=== PATIENT | female | born 1970 | race Caucasian/White ===

== ENCOUNTER 2016-08-13 17:10 | Emergency (ER) | payer SELFPAY ==
[~2016-08-13] VITALS: Ht 157.5 cm; Wt 137.0 kg
[2016-08-13 18:35] LABS: BASO % 0.1 % (0.0-1.0); EOS # 0.3 K/mm3 (0.0-0.50); EOS % 3.5 % (0.0-3.0); LARGE UNSTAINED CELL # 0.1 K/mm3 (0.0-0.4); LYMPH % 9.8 % (24.0-44.0); MEAN CORPUSCULAR HEMOGLOBIN 26.9 pg (27.0-33.0); MEAN CORPUSCULAR HGB CONC 32.3 g/dl (32.0-36.5); MEAN CORPUSCULAR VOLUME 83.3 fl (80.0-96.0); MONO # 0.5 K/mm3 (0.0-0.8); NEUTROPHILS # 7.2 K/mm3 (1.8-7.7); NEUTROPHILS % 80.5 % (36.0-66.0); PLATELET COUNT, AUTOMATED 298 k/mm3 (150-450); RED CELL DISTRIBUTION WIDTH 14.8 % (11.5-14.5)
[2016-08-13 19:04] LABS: ALBUMIN/GLOBULIN RATIO 0.97 (1.00-1.93); ALKALINE PHOSPHATASE 74 U/L (45-117); ALT/SGPT 63 U/L (12-78); ANION GAP 6 MEQ/L (8-16); AST/SGOT 30 U/L (15-37); BILIRUBIN,DIRECT 0.2 MG/DL (0.0-0.2); BILIRUBIN,TOTAL 0.4 MG/DL (0.2-1.0); BLOOD UREA NITROGEN 15 MG/DL (7-18); CALCIUM LEVEL 8.1 MG/DL (8.5-10.1); CARBON DIOXIDE LEVEL 28 MEQ/L (21-32); CHLORIDE LEVEL 107 MEQ/L (98-107); CREATININE FOR GFR 0.67 MG/DL (0.55-1.02); GLOMERULAR FILTRATION RATE > 60.0 (>58); GLUCOSE, FASTING 103 MG/DL (70-105); POTASSIUM SERUM 4.1 MEQ/L (3.5-5.1); SODIUM LEVEL 141 MEQ/L (136-145); TOTAL PROTEIN 6.1 GM/DL (6.4-8.2)
[2016-08-13 19:46] LABS: CONTROL LINE HCG INT CTR LINE PRESENT
[2016-08-13 21:31] VITALS: BP 189/80
[2016-08-13 21:56] LABS: METHADONE URINE NEGATIVE (NEGATIVE)
== END 2016-08-13 23:12 | disposition home or self-care (01) ==
LOC: M ED 19:07
DX: F60.9 Personality disorder, unspecified (principal); Z59.0 Homelessness
CPT/HCPCS: 80048; 80076; 80306; 84443; 84703; 85025; 99284; G0480

== ENCOUNTER 2016-10-22 11:32 | Emergency (ER) | payer SELFPAY ==
[~2016-10-22] VITALS: Ht 152.4 cm; Wt 93.0 kg
[2016-10-22 13:54] LABS: MEAN CORPUSCULAR HEMOGLOBIN 27.6 pg (27.0-33.0); MEAN CORPUSCULAR HGB CONC 34.7 g/dl (32.0-36.5); MEAN CORPUSCULAR VOLUME 79.5 fl (80.0-96.0); RED CELL DISTRIBUTION WIDTH 15.9 % (11.5-14.5); WHITE BLOOD COUNT 7.7 K/mm3 (4.0-10.0)
[2016-10-22 14:05] LABS: CONTROL LINE HCG INT CTR LINE PRESENT
[2016-10-22 14:25] LABS: ALBUMIN 3.5 GM/DL (3.2-5.2); ALBUMIN/GLOBULIN RATIO 0.97 (1.00-1.93); ALKALINE PHOSPHATASE 75 U/L (45-117); ALT/SGPT 26 U/L (12-78); ANION GAP 9 MEQ/L (8-16); AST/SGOT 12 U/L (15-37); BILIRUBIN,DIRECT 0.1 MG/DL (0.0-0.2); BILIRUBIN,TOTAL 0.3 MG/DL (0.2-1.0); BLOOD UREA NITROGEN 21 MG/DL (7-18); CALCIUM LEVEL 8.7 MG/DL (8.5-10.1); CARBON DIOXIDE LEVEL 29 MEQ/L (21-32); CHLORIDE LEVEL 104 MEQ/L (98-107); GLOMERULAR FILTRATION RATE > 60.0 (>58); GLUCOSE, FASTING 115 MG/DL (70-105); POTASSIUM SERUM 3.1 MEQ/L (3.5-5.1); SODIUM LEVEL 142 MEQ/L (136-145); TOTAL PROTEIN 7.1 GM/DL (6.4-8.2)
[2016-10-22] MEDS ORDERED: POTASSIUM CHLORIDE 10 MEQ SR TABLET PO ONE (14:45)
[2016-10-22 15:53] LABS: METHADONE URINE NEGATIVE (NEGATIVE)
--- NOTE | 2016-10-22 16:15 | REP ---
CT HEAD WITHOUT CONTRAST: HISTORY: Hirsutism. An area of decreased attenuation is present in the right basal ganglia and internal capsule. This represents an old infarction. Areas of decreased attenuation are present in the periventricular white matter. This represents small vessel ischemic disease. There is no intraparenchymal hemorrhage, mass or midline shift. The ventricular system and cortical sulci are dilated consistent with minimal volume loss. There is no extracerebral collection. A 15 mm enostosis is present arising from the inner table of the left frontal bone. The visualized sinuses are clear. IMPRESSION: 1. 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 2. Small vessel ischemic disease. 3. Minimal volume loss. Signed by Romero Barker MD 10/22/2016 04:28 P
--- NOTE | 2016-10-22 16:42 | REP ---
CT ABDOMEN AND PELVIS WITHOUT CONTRAST: CT abdomen and pelvis performed without oral or IV contrast. Sagittal and coronal reconstruction images are performed. Visualized lung bases are clear. Liver is grossly unremarkable. Multiple gallstones are seen in the gallbladder. The spleen, adrenals, pancreas, and kidneys are grossly unremarkable. There is no renal or ureteral calculus and no hydroureteronephrosis. There is no abdominal aortic aneurysm. There is no adenopathy. There is no free air or free fluid. There is no bowel wall thickening. Uterus is enlarged with lobulated contour compatible with fibroids. Cystic structure of the right ovary measures 2.9 cm in maximum diameter. Urinary bladder is not distended and not evaluated. There are degenerative changes of the spine. IMPRESSION: Gallstones in the gallbladder. No free air or free fluid. Enlarged fibroid uterus. Right ovarian cyst measures 2.9 cm in diameter. Signed by Boom Rice MD 10/23/2016 07:40 P
[2016-10-22 17:55] VITALS: BP 196/112
--- NOTE | 2016-10-24 08:45 | ED PDOC ---
Post-Departure Follow-Up certified letter sent regarding radiology report Zoay Clark MD Oct 24, 2016 08:45
== END 2016-10-22 17:58 | disposition home or self-care (01) ==
LOC: M ED 12:29
DX: I10 Essential (primary) hypertension (principal); L68.0 Hirsutism; K80.20 Calculus of gallbladder without cholecystitis without obstruction; N83.201 Unspecified ovarian cyst, right side; D25.9 Leiomyoma of uterus, unspecified
CPT/HCPCS: 36415; 70450; 74176; 80048; 80076; 80306; 84443; 84703; 85027; 99283; G0480

== ENCOUNTER → 2016-12-13 | Outpatient (CLI) | payer MEDICAID, OTHER ==
[~2016-12-13] MED LIST: ASPI1TAB PO; ATOR1TAB21 PO
[2016-12-13 10:33] LABS: BASO % 0.3 % (0.0-1.0); EOS # 0.2 K/mm3 (0.0-0.50); EOS % 1.8 % (0.0-3.0); LARGE UNSTAINED CELL # 0.1 K/mm3 (0.0-0.4); LARGE UNSTAINED CELL % 1.1 % (0.0-4.0); LYMPH # 1.7 K/mm3 (1.5-4.5); LYMPH % 18.4 % (24.0-44.0); MEAN CORPUSCULAR HEMOGLOBIN 27.6 pg (27.0-33.0); MEAN CORPUSCULAR HGB CONC 33.2 g/dl (32.0-36.5); MEAN CORPUSCULAR VOLUME 83.1 fl (80.0-96.0); MONO # 0.5 K/mm3 (0.0-0.8); MONO % 5.6 % (0.0-5.0); NEUTROPHILS # 6.2 K/mm3 (1.8-7.7); NEUTROPHILS % 72.8 % (36.0-66.0); PLATELET COUNT, AUTOMATED 251 k/mm3 (150-450); RED CELL DISTRIBUTION WIDTH 17.2 % (11.5-14.5); WHITE BLOOD COUNT 8.5 K/mm3 (4.0-10.0)
[2016-12-13 11:00] LABS: ALBUMIN/GLOBULIN RATIO 0.98 (1.00-1.93); BILIRUBIN,TOTAL 0.5 MG/DL (0.2-1.0); CALCIUM LEVEL 9.5 MG/DL (8.5-10.1); CREATININE FOR GFR 1.16 MG/DL (0.55-1.02); GLOMERULAR FILTRATION RATE 53.1 (>58); POTASSIUM SERUM 3.8 MEQ/L (3.5-5.1); TOTAL PROTEIN 8.1 GM/DL (6.4-8.2)
== END ==
LOC: M LAB 08:55 → MERGE 08:55
PROVIDERS: ATTEND Family Medicine Addiction Medicine
DX: L68.0 Hirsutism (principal); R03.0 Elevated blood-pressure reading, without diagnosis of hypertension

== ENCOUNTER → 2017-01-14 | Outpatient (CLI) | payer OTHER ==
--- NOTE | 2017-01-15 06:56 | REP ---
MRI BRAIN WITHOUT AND WITH CONTRAST: HISTORY: Hirsutism. CONTRAST: ProHance 11 mL. COMPARISON: CT 10/22/2016. An area of increased signal intensity on T2-weighted images is present in the right basal ganglia and internal capsule. This represents an old lacunar infarction. Several punctate areas of increased signal intensity on T2-weighted images are present in the periventricular and subcortical white matter. This represents small vessel ischemic disease. There is no intraparenchymal hemorrhage, acute infarct, mass or midline shift. The ventricular system and cortical sulci are dilated consistent with minimal volume loss. There is no extracerebral collection. The sella turcica is partially empty. The pituitary gland is normal in size and signal intensity. The pituitary gland measures 4.9 mm in height. There is homogeneous enhancement with contrast. The infundibulum is midline. The cavernous sinuses, optic chiasm and hypothalamus are normal in appearance. IMPRESSION: 1. 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 2. Small vessel ischemic disease. 3. Minimal volume loss. Signed by Romero Barker MD 01/15/2017 08:35 A
== END ==
LOC: M RAD 14:02
PROVIDERS: ATTEND Family Medicine Addiction Medicine
DX: R03.0 Elevated blood-pressure reading, without diagnosis of hypertension (principal)
CPT/HCPCS: 70553; A9576

== ENCOUNTER 2017-02-25 13:41 | Inpatient (IN) | payer OTHER ==
[~2017-02-25] VITALS: Ht 154.9 cm; Wt 89.7 kg
--- NOTE | 2017-02-25 14:48 | REP ---
CT Head without contrast HISTORY: Syncope COMPARISON: 10/22/2016 An area of decreased attenuation is present in the right basal ganglia and internal capsule. This represents an old lacunar infarction. Areas of decreased attenuation are present in the periventricular white matter. This represents small-vessel ischemic disease. There is no intraparenchymal hemorrhage, acute infarct, mass or midline shift. The ventricular system and cortical sulci are dilated consistent with minimal volume loss. There is no extra cerebral collection. There is no fracture. A 1.5 cm enostosis is present arising from the inner table of the left frontal bone. The visualized sinuses are clear. IMPRESSION: 1. 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 2. Small vessel ischemic disease. 3. Minimal volume loss. Signed by Romero Barker MD 02/25/2017 02:39 P
[2017-02-25 15:02] LABS: BASO % 0.2 % (0.0-1.0); EOS % 0.2 % (0.0-3.0); IMMATURE GRANULOCYTE % 0.5 % (0-0); LYMPH # 1.1 10^3/uL (1.5-4.5); LYMPH % 8.2 % (24.0-44.0); MEAN CORPUSCULAR HEMOGLOBIN 28.9 pg (27.0-33.0); MEAN CORPUSCULAR HGB CONC 34.9 g/dl (32.0-36.5); MEAN CORPUSCULAR VOLUME 82.8 fl (80.0-96.0); MONO # 0.7 10^3/uL (0.0-0.8); NEUTROPHILS # 11.1 10^3/uL (1.8-7.7); NEUTROPHILS % 85.9 % (36.0-66.0); PLATELET COUNT, AUTOMATED 175 10^3/uL (150-450); RED CELL DISTRIBUTION WIDTH 14.3 % (11.5-14.5)
[2017-02-25 15:22] LABS: PLT CLUMPS? POS FLAG; POS COUNT POS FLAG
[2017-02-25] MEDS ORDERED: NS 1,000 ML IV ONE (15:30)
[2017-02-25 15:33] LABS: CONTROL LINE HCG INT CTR LINE PRESENT
[2017-02-25 15:43] LABS: ANION GAP 20 MEQ/L (8-16); BLOOD UREA NITROGEN 23 MG/DL (7-18); CARBON DIOXIDE LEVEL 22 MEQ/L (21-32); CHLORIDE LEVEL 93 MEQ/L (98-107); CREATININE FOR GFR 1.61 MG/DL (0.55-1.02); FREE T4 1.39 NG/DL (0.76-1.46); GLOMERULAR FILTRATION RATE 36.4 (>58); GLUCOSE, FASTING 112 MG/DL (70-105); MAGNESIUM LEVEL 1.9 MG/DL (1.8-2.4); SODIUM LEVEL 135 MEQ/L (136-145)
[2017-02-25 16:05] LABS: POTASSIUM SERUM 2.8 MEQ/L (3.5-5.1)
[2017-02-25] MEDS ORDERED: POTASSIUM CHLORIDE 10 MEQ SR TABLET PO ONE (16:15)
--- NOTE | 2017-02-25 16:33 | REP ---
CHEST, SINGLE VIEW: There is no evidence of acute infiltrate. No pleural effusion is seen. The heart is normal in size. The mediastinal silhouette is unremarkable. The visualized osseous structures are intact. IMPRESSION: No acute pulmonary disease. Signed by Boom Rice MD 02/25/2017 08:03 P
[2017-02-25] MEDS ORDERED: ONDANSETRON 4MG/2ML VIAL (J2405) IV PRN (17:00)
--- NOTE | 2017-02-25 17:17 | HPEPDOC ---
[facility] Medical History & Physical Date of Admission Feb 25, 2017 History and Physical PCP: Dr. Wander Roy ATTENDING: Dr. Kim Fuller CHIEF COMPLAINT: Syncope HISTORY OF PRESENT ILLNESS: This is a 46-year-old female past medical history of hypertension, asthma, hyperlipidemia, prior old lacunar/basal ganglia infarct on imaging, hirsutism being followed by Dr. Saldivar who presents with syncope. Patient states that she's been homeless since June. She is currently staying at a motel. She went to see and Dr. Roy today for management of her hypertension when she stood up to go use the bathroom and had an episode of syncope. Patient denies any symptoms prior to syncope. No chest pain/shortness of breath/palpitations. No prior episodes. Patient denies any fecal or urinary incontinence. No tongue trauma. Of note, the patient did run out of food a week ago and has been only drinking water. She had 2 episodes of nausea and bilious/nonbloody vomiting 2 today. No diarrhea. Patient does have a history of hirsutism since November and is being worked up by Dr. Saldivar outpatient. PAST MEDICAL HISTORY: As per HPI PAST SURGICAL HISTORY: Tonsillectomy SOCIAL HISTORY: Denies tobacco, alcohol, illicit drug use. Homeless since June. FAMILY HISTORY: Father with [place] age 40s to 50s ALLERGIES: Please see below. REVIEW OF SYSTEMS: HEENT: Denies sore throat/headache CARDIOVASCULAR: Denies chest pain/palpitations RESPIRATORY: Denies shortness of breath/cough GASTROINTESTINAL: denies nausea/vomiting GENITOURINARY: Denies dysuria/urinary urgency. MUSCULOSKELETAL: Denies myalgias/arthralgias NEUROLOGICAL: Denies any focal weakness HOME MEDICATIONS: Please see below. PHYSICAL EXAMINATION: Vitals: (see below) General: No acute distress, laying comfortably in bed. Appears unkept. HEENT: Moist mucous membranes. Hirsutism. Neck: No JVD or lymphadenopathy Cardiac: RRR, 3-6 systolic murmur at the second right intercostal space Pulm: Clear to auscultation b/l. No wheezing, rhonchi Abd: NT/ND + BS. Obese. Ext: No edema or cyanosis Neuro: Strength 5/5 BUE and BLE. CN 2-12 intact. F to N intact Negative Babinki. Alert and oriented 3. LABORATORY DATA: See below. IMAGING: CT head on 02/25/17 IMPRESSION: 1. 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 2. Small vessel ischemic disease. 3. Minimal volume loss. MICROBIOLOGY: Please see below. ASSESSMENT/PLAN: 1. Syncope likely secondary to orthostatic hypotension. Patient has not been eating for the past week she ran out of food. She's also been nauseous and vomiting today. She was orthostatic in the ED. We'll trend orthostatic vitals while hydrating patient. Patient does have a murmur on exam and will have echocardiogram. We'll monitor in telemetry. Cardiac enzymes negative thus far and will trend. EKG with no acute ST changes. 2. Hypokalemia- likely secondary to vomiting and decreased by mouth intake. We will replace. 3. Acute kidney injury- patient's baseline creatinine is less than 1.1. Started on IV fluids. We will monitor labs. Renal ultrasound if no improvement. Patient is urinating well. 4. Leukocytosis- likely reactive. No source of infection. Afebrile. We'll continue to monitor. 5.Metabolic acidosis- likely secondary to decreased by mouth intake, as well as acute kidney injury. We'll hydrate patient and continue to monitor for improvement. 6. History of basal ganglia/lacunar infarct on imaging- we'll need to consider aspirin/statin prior to discharge 7. Hyperlipidemia- will start patient on statin. 8. H/o HTN 9. Hirsutism - being followed up by Dr. Saldivar, cont outpt f/u. DVT: Heparin SQ Case management consulted as pt is homeless. Vital Signs Vital Signs Date Time Temp Pulse Resp B/P (MAP) Pulse Ox O2 Delivery O2 Flow Rate FiO2 02/25/17 15:57 137/81 (99) 02/25/17 15:56 76 92 02/25/17 13:44 95.1 18 Room Air Laboratory Data Labs 24H Laboratory Tests 2 02/25/17 14:50: Immature Granulocyte % (Auto) 0.5H, White Blood Count 13.0H, Red Blood Count 5.98H, Hemoglobin 17.3H, Hematocrit 49.5H, Mean Corpuscular Volume 82.8, Mean Corpuscular Hemoglobin 28.9, Mean Corpuscular Hemoglobin Concent 34.9, Red Cell Distribution Width 14.3, Platelet Count 175, Neutrophils (%) (Auto) 85.9H, Lymphocytes (%) (Auto) 8.2L, Monocytes (%) (Auto) 5.0, Eosinophils (%) (Auto) 0.2, Basophils (%) (Auto) 0.2, Neutrophils # (Auto) 11.1H, Lymphocytes # (Auto) 1.1L, Monocytes # (Auto) 0.7, Eosinophils # (Auto) 0.0, Basophils # (Auto) 0.0, Immature Granulocyte # (Auto) 0.1H, Nucleated Red Blood Cells % (auto) 0.0, Anion Gap 20H, Glomerular Filtration Rate 36.4L, Blood Urea Nitrogen 23H, Creatinine 1.61H, Sodium Level 135L, Potassium Level 2.8*L, Chloride Level 93L, Carbon Dioxide Level 22, Calcium Level 10.0, Total Creatine Kinase 91, Magnesium Level 1.9, Creatine Kinase MB 4.3H, Creatine Kinase MB Relative Index 4.72H, Troponin I < 0.02, Thyroid Stimulating Hormone (TSH) 1.760, Free Thyroxine 1.39, Human Chorionic Gonadotropin, Qual NEGATIVE CBC/BMP Laboratory Tests 02/25/17 14:50 Red Blood Count 5.98 H, Mean Corpuscular Volume 82.8, Mean Corpuscular Hemoglobin 28.9, Mean Corpuscular Hemoglobin Concent 34.9, Red Cell Distribution Width 14.3, Neutrophils (%) (Auto) 85.9 H, Lymphocytes (%) (Auto) 8.2 L, Monocytes (%) (Auto) 5.0, Eosinophils (%) (Auto) 0.2, Basophils (%) (Auto ) 0.2, Neutrophils # (Auto) 11.1 H, Lymphocytes # (Auto) 1.1 L, Monocytes # ( Auto) 0.7, Eosinophils # (Auto) 0.0, Basophils # (Auto) 0.0, Calcium Level 10.0 , Total Creatine Kinase 91 Home Medications No Active Prescriptions or Reported Meds Allergies Coded Allergies: No Known Allergies (Unverified , 08/13/16) HALLEY CRUZ MD Feb 25, 2017 17:17
[2017-02-25 19:00] VITALS: BP 175/80
[2017-02-25] MEDS: PANTOPRAZOLE 40MG INJ (PROTONIX) (C9113) IV SCH (19:11)
[2017-02-25] MEDS: NS 1,000 ML IV SCH (19:11)
[2017-02-25 21:41] LABS: CALCIUM LEVEL 8.6 MG/DL (8.5-10.1); CREATININE FOR GFR 1.44 MG/DL (0.55-1.02); GLOMERULAR FILTRATION RATE 41.4 (>58); MAGNESIUM LEVEL 1.6 MG/DL (1.8-2.4); POTASSIUM SERUM 3.2 MEQ/L (3.5-5.1)
[2017-02-25 22:00] VITALS: BP 133/72
[2017-02-25] MEDS: HEPARIN SOD (PORCINE) 5000 UNITS/ML VIAL SC SCH (22:33)
[2017-02-26] VITALS (8 sets, daily range): BP systolic 99–160; BP diastolic 58–88
[2017-02-26] MEDS: NS 1,000 ML IV SCH (04:57)
[2017-02-26] MEDS: HEPARIN SOD (PORCINE) 5000 UNITS/ML VIAL SC SCH ×3 (05:08→20:38)
--- NOTE | 2017-02-26 08:20 | ECGEPIP ---
Stationary ECG Study [facility] - ED Test Date: 2017-02-25 Pat Name: FINA TRINIDAD Department: Room: - Gender: F Furniture Builder: JT : 1970 Requested By: TANIKA Zarate Order Number: [id number] Reading MD: Zoya Clark Measurements Intervals [place] Rate: 82 P: 69 MI: 162 QRS: 10 QRSD: 89 T: 25 QT: 362 QTc: 425 Interpretive Statements SINUS RHYTHM MODERATE VOLTAGE CRITERIA FOR LVH, CONSIDER NORMAL VARIANT DELAYED R PROGRESSION NSTTW ABNORMALITY NO PRIOR FOR COMPARISON Electronically Signed On 02-26-2017 8:20:27 EDT by Zoya Clark
[2017-02-26] MEDS: ATORVASTATIN 20 MG TAB PO SCH (08:57)
[2017-02-26] MEDS: KCL 20MEQ in NS 1000ML 1,000 ML IV SCH ×2 (11:36→20:38)
[2017-02-26 11:46] LABS: MEAN CORPUSCULAR HEMOGLOBIN 28.2 pg (27.0-33.0); MEAN CORPUSCULAR HGB CONC 33.9 g/dl (32.0-36.5); MEAN CORPUSCULAR VOLUME 83.2 fl (80.0-96.0); RED CELL DISTRIBUTION WIDTH 14.4 % (11.5-14.5); WHITE BLOOD COUNT 6.7 10^3/uL (4.0-10.0)
[2017-02-26 12:45] LABS: CALCIUM LEVEL 8.4 MG/DL (8.5-10.1); CREATININE FOR GFR 1.21 MG/DL (0.55-1.02); GLOMERULAR FILTRATION RATE 50.6 (>58); MAGNESIUM LEVEL 1.6 MG/DL (1.8-2.4); POTASSIUM SERUM 3.5 MEQ/L (3.5-5.1); THYROXINE (T4) 7.2 UG/DL (4.5-12.0)
[2017-02-26] MEDS: PANTOPRAZOLE 40MG INJ (PROTONIX) (C9113) IV SCH (17:48)
[2017-02-26] MEDS ORDERED: POTASSIUM CHLORIDE 10 MEQ SR TABLET PO ONE (18:30)
[2017-02-26] MEDS ORDERED: MAG SULF 1GM/100ML (MAG RUN) 1 GM in APPROPRIATE DILUENT 1 EA IV ONE (19:00)
--- NOTE | 2017-02-26 19:00 | IPN ---
DATE: 02/26/2017 Patient seen and examined. No acute events overnight. Reported improved lightheadedness, no further episodes of syncope. Hydration much improved. Continues to be orthostatic, but much improved. VITAL SIGNS: Temperature 98, pulse 82, respiration 18, Blood pressure 126/67, pulse ox 97% on room air. LABORATORY: WBC 6.7, H H 13.4/39.5. Platelets 129. Chemistry: Sodium 138, potassium 3.5, chloride 105, bicarbonate 26, BUN 21, creatinine 1.2, magnesium 1.6. PHYSICAL EXAM: GENERAL: Patient alert and oriented times three in no acute distress. HEENT: Normocephalic, atraumatic. PULMONARY: Bilaterally clear to auscultation. CARDIAC: Regular rate and rhythm. Normal S1, S2. ABDOMEN: Soft, non-tender, positive bowel sounds. EXTREMITIES: No clubbing, cyanosis or edema. ASSESSMENT AND PLAN: This is a 46-year-old homeless patient with underlying medical history of hypertension, asthma, dyslipidemia, old lacunar and basal ganglia infarct on imaging presented with syncope secondary to orthostatic hypotension. Patient stated has not been eating, has ran out of food for the past week or so and reported nausea and vomiting today. Was orthostatic in the emergency room, given IV fluids, with much improvement. Cardiac enzyme was negative. Follow up orthostatic physical therapy. Patient and Family Services (PFS) consulted. Hypokalemia hypomagnesemia secondary to decreased oral intake. Continue supplementation given. Continue to follow. Acute kidney injury. Baseline creatinine 1.1. Given IV fluids, currently improved. Leukocytosis, likely reactive. We will continue to monitor. Metabolic acidosis secondary to poor decreased oral intake and acute kidney injury. We will continue to monitor. History of basal ganglia and lacunar infarct. Will consider aspirin statin prior to discharge. Dyslipidemia. Will restart statin. History of hypertension. Patient currently orthostatic hypotension. We will hold all blood pressure medication. History of Hirsutism . Patient is being followed by Dr. Saldivar as outpatient. Deep vein thrombosis prophylaxis. Heparin subcu. DISPOSITION PLANNING: Social work, physical therapy, resolution of orthostasis and follow up pending correction of electrolyte abnormalities. [facility]
--- NOTE | 2017-02-26 23:19 | ECHO ---
DATE OF PROCEDURE: 02/26/2017 REFERRING PHYSICIAN: Reyes Romeo MD INDICATION: Syncope. HEIGHT: 155 cm WEIGHT: 106.1 kg 2D MEASUREMENTS: Left atrium: 3.6 cm Aortic root: 2.7 cm Ventricular septum: 1.06 cm Posterior wall: 1.08 cm Left ventricle diastole: 4.0 cm LVOT: 2.0 cm Inferior vena cava: 1.6 cm DOPPLER MEASUREMENTS: Aortic valve velocity: 167 cm/s LVOT velocity: 117 cm/s LVOT VTI: 27.0 cm Mitral E velocity: 96.7 cm/s Mitral A velocity: 74.5 cm/s Mitral deceleration time: 197 ms Very mild tricuspid regurgitation. Estimated right ventricle systolic pressure 29 mmHg assuming a right atrial pressure of 5 mmHg. MITRAL ANNULAR TISSUE DOPPLER: E prime septal: 7.8 cm/s E prime lateral: 13.3 cm/s DESCRIPTION: Rhythm was sinus. Image quality was fair. No pericardial effusion. This is a 2D, M-mode, color flow Doppler and pulse wave Doppler examination that included mitral annular tissue Doppler. CONCLUSIONS: 1. Normal echocardiogram Doppler. 2. Normal left ventricle internal dimensions and wall thickness. Normal regional left ventricle (LV) wall motion and wall thickening. Normal LV systolic and diastolic function. Left ventricular ejection fraction (LVEF) 65% by visual esitmate.
[2017-02-27] VITALS (8 sets, daily range): BP systolic 119–165; BP diastolic 62–89
[2017-02-27] MEDS: KCL 20MEQ in NS 1000ML 1,000 ML IV SCH (04:27)
[2017-02-27] MEDS: HEPARIN SOD (PORCINE) 5000 UNITS/ML VIAL SC SCH ×3 (05:42→21:24)
[2017-02-27 06:26] LABS: METHADONE URINE NEGATIVE (NEGATIVE)
[2017-02-27 07:17] LABS: MEAN CORPUSCULAR HEMOGLOBIN 28.7 pg (27.0-33.0); MEAN CORPUSCULAR HGB CONC 33.4 g/dl (32.0-36.5); MEAN CORPUSCULAR VOLUME 85.8 fl (80.0-96.0); WHITE BLOOD COUNT 4.9 10^3/uL (4.0-10.0)
[2017-02-27 07:38] LABS: ANION GAP 4 MEQ/L (8-16); BLOOD UREA NITROGEN 18 MG/DL (7-18); CALCIUM LEVEL 7.8 MG/DL (8.5-10.1); CARBON DIOXIDE LEVEL 26 MEQ/L (21-32); CHLORIDE LEVEL 113 MEQ/L (98-107); CREATININE FOR GFR 1.03 MG/DL (0.55-1.02); GLOMERULAR FILTRATION RATE > 60.0 (>58); GLUCOSE, FASTING 81 MG/DL (70-105); MAGNESIUM LEVEL 1.9 MG/DL (1.8-2.4); POTASSIUM SERUM 3.8 MEQ/L (3.5-5.1); SODIUM LEVEL 143 MEQ/L (136-145)
[2017-02-27] MEDS: ATORVASTATIN 20 MG TAB PO SCH (08:43)
[2017-02-27] MEDS ORDERED: INFLUENZA QUADRIVALENT PF VACCINE 0.5ML SYRINGE (90686) IM ONE (09:00)
[2017-02-27] MEDS ORDERED: ATOR1TAB21 PO (11:40)
[2017-02-27] MEDS ORDERED: ASPI1TAB PO (11:40)
[2017-02-27] MEDS: PANTOPRAZOLE 40MG INJ (PROTONIX) (C9113) IV SCH (17:44)
--- NOTE | 2017-02-27 20:56 | DSES ---
DATE OF ADMISSION: 02/25/2017 DATE OF DISCHARGE: 02/27/2017 PRIMARY CARE PROVIDER: Dr. Wander Roy FINAL DIAGNOSES: 1. Syncope secondary to orthostatic hypotension, secondary to poor oral intake. 2. Homeless. 3. Hypokalemia. 4. Hypomagnesemia. 5. Acute kidney injury. 6. Leukocytosis. 7. Metabolic acidosis. 8. History of basal ganglion lacunar infarct. 9. Dyslipidemia. 10. Hypertension. 11. Hirsutism. HISTORY OF PRESENT ILLNESS: This is a 46-year-old female patient with underlying medical history of hypertension, asthma, dyslipidemia, old lacunar and basal ganglion infarct on imaging, hirsutism, being followed by Dr. Saldivar, presented with syncope. Patient states that she has been homeless since June, and she is currently staying at a motel. She wanted to see Wander Roy for management of her hypertension. She stood up to the use the bathroom and had an episode of syncope. She does any symptoms prior to the syncope. No chest pain, shortness of breath, palpitations. No prior episodes. Patient denies any fecal or urinary incontinence. No tongue trauma. No history of seizure. Furthermore, patient reported that she has been out of food for a week, only drinking water. Had two episodes of nausea and bilious, nonbloody vomiting for 2 days. No diarrhea. Patient has had history of hirsutism since November. Has been followed by Dr. Saldivar as outpatient. HOSPITAL COURSE: Patient was admitted to the hospital and found to have acute kidney injury with severe dehydration and hypokalemia, hypomagnesemia, as well as orthostatic hypotension. Intravenous (IV) fluids were given. Electrolytes were supplemented. CT scan and chest x-ray were appreciated. Physical therapy was done. Patient's condition progressively improved. Patient and family services (PFS) was consulted to make sure patient had a safe situation upon discharge. Patient was referred to department of director of social media marketing (DSS). Social work consult appreciated. Patient currently feels comfortable, back to baseline, asymptomatic. Negative telemetry. Ready for discharge. Negative PVCs with corrected electrolyte abnormalities. Ready for discharge for further care as outpatient. VITAL SIGNS: Temperature 98, pulse 67, respirations 18, blood pressure 119/62, pulse x 97% on room air. GENERAL: Patient alert and oriented times three in no acute distress. HEENT: Normocephalic, atraumatic. PULMONARY: Bilaterally clear to auscultation. CARDIAC: Regular rate and rhythm. Normal S1, S2. ABDOMEN: Soft and nontender. Positive bowel sounds. EXTREMITIES: No clubbing, cyanosis, or edema. LABORATORY DATA: WBC 4.9, hemoglobin and hematocrit 12.7/38, platelets 132. Chemistry: Sodium 143, potassium 3.8, chloride 113, bicarbonate 26, BUN 18, creatinine 1.03, magnesium 1.9. DISCHARGE MEDICATIONS: - aspirin 81 mg by mouth daily - Lipitor 40 mg by mouth daily DISCHARGE INSTRUCTIONS: Patient is instructed to followup with primary care provider in 7 days. Return to the hospital if symptoms worsen. Patient is to see social work prior to discharge to make sure patient has a safe plan upon discharge.
[2017-02-28 02:00] VITALS: BP 145/67
[2017-02-28] MEDS: HEPARIN SOD (PORCINE) 5000 UNITS/ML VIAL SC SCH (05:10)
[2017-02-28 06:10] VITALS: BP_SYST 153; BP_SYST 161; BP_SYST 169; BP_DIAS 71; BP_DIAS 89; BP_DIAS 92
[2017-02-28 06:11] VITALS: BP 153/71
[2017-02-28 07:41] LABS: MEAN CORPUSCULAR HEMOGLOBIN 29.1 pg (27.0-33.0); MEAN CORPUSCULAR HGB CONC 33.5 g/dl (32.0-36.5); MEAN CORPUSCULAR VOLUME 86.7 fl (80.0-96.0); PLATELET COUNT, AUTOMATED 150 10^3/uL (150-450); RED CELL DISTRIBUTION WIDTH 15.1 % (11.5-14.5); WHITE BLOOD COUNT 5.4 10^3/uL (4.0-10.0)
[2017-02-28 07:58] LABS: ANION GAP 4 MEQ/L (8-16); BLOOD UREA NITROGEN 17 MG/DL (7-18); CALCIUM LEVEL 8.3 MG/DL (8.5-10.1); CARBON DIOXIDE LEVEL 27 MEQ/L (21-32); CHLORIDE LEVEL 111 MEQ/L (98-107); CREATININE FOR GFR 0.92 MG/DL (0.55-1.02); GLOMERULAR FILTRATION RATE > 60.0 (>58); GLUCOSE, FASTING 85 MG/DL (70-105); MAGNESIUM LEVEL 1.7 MG/DL (1.8-2.4); SODIUM LEVEL 142 MEQ/L (136-145)
[2017-02-28] MEDS ORDERED: MAG SULF 1GM/100ML (MAG RUN) 1 GM in APPROPRIATE DILUENT 1 EA IV ONE (09:00)
[2017-02-28] MEDS: ATORVASTATIN 20 MG TAB PO SCH (09:44)
[2017-02-28 10:00] VITALS: BP 136/86
--- NOTE | 2017-02-28 17:56 | DSES ---
DATE OF ADMISSION: 02/25/2017 DATE OF DISCHARGE: 02/28/2017 PRIMARY CARE PROVIDER: Dr. Wander Roy. FINAL DIAGNOSES: 1. Syncope secondary to orthostatic hypotension secondary to poor oral intake and homeless. 2. Hypokalemia. 3. Hypomagnesemia. 4. Acute kidney injury. 5. Leukocytosis. 6. Metabolic acidosis. 7. History of basal ganglia lacunar infarct. 8. Dyslipidemia. 9. Hypertension. 10. Hirsutism. Patient originally intended for discharge on 02/27/2017. Discharge delayed, given social situation and arrangements. Given patient is homeless, need social work to arrange for proper disposition. Please refer to discharge summary dictated on 02/27/2017 for further information. Patient currently discharged 02/28/2017. ESTIMATED TIME SPENT: 35 minutes.
== END 2017-02-28 11:11 | disposition home or self-care (01) | DRG 204 ==
LOC: M ED 13:41 → EDBD 13:41 → M ED INP 16:53 → M MSPAV 19:00
PROVIDERS: ADMIT Internal Medicine; ATTEND Hospitalist
DX: I95.1 Orthostatic hypotension (principal); N17.9 Acute kidney failure, unspecified; E87.2 Acidosis; E83.42 Hypomagnesemia; I10 Essential (primary) hypertension; J45.909 Unspecified asthma, uncomplicated; E78.5 Hyperlipidemia, unspecified; L68.0 Hirsutism; E87.6 Hypokalemia; Z59.0 Homelessness

== ENCOUNTER → 2017-03-26 | Outpatient (CLI) | payer MEDICAID, OTHER ==
[2017-03-26 13:16] LABS: CORTISOL AM 8.2 UG/DL (4.3-22.4); LUTEINIZING HORMONE 8.9 mIU/mL
[2017-03-26 13:17] LABS: ESTRADIOL 129.1 PG/ML; FOLLICLE STIMULATING HORMONE 4.8 mIU/mL
== END ==
LOC: M LAB 11:37
PROVIDERS: ATTEND Nurse Practitioner Family
DX: E28.2 Polycystic ovarian syndrome (principal)

== ENCOUNTER → 2017-04-30 | Outpatient (REF) | payer OTHER ==
[2017-04-30 13:50] LABS: ANION GAP 7 MEQ/L (8-16); BLOOD UREA NITROGEN 23 MG/DL (7-18); CALCIUM LEVEL 8.1 MG/DL (8.5-10.1); CARBON DIOXIDE LEVEL 30 MEQ/L (21-32); CHLORIDE LEVEL 101 MEQ/L (98-107); CREATININE FOR GFR 0.99 MG/DL (0.55-1.02); GLOMERULAR FILTRATION RATE > 60.0 (>58); GLUCOSE, FASTING 83 MG/DL (70-105); POTASSIUM SERUM 4.6 MEQ/L (3.5-5.1); SODIUM LEVEL 138 MEQ/L (136-145)
== END ==
LOC: M LABDRAW1 13:22
PROVIDERS: ATTEND Nurse Practitioner Family
DX: E28.2 Polycystic ovarian syndrome (principal)

== ENCOUNTER → 2017-07-15 | Outpatient (CLI) | payer OTHER, MEDICAID | LOC: M RAD 15:15 | DX: Z12.31 Encounter for screening mammogram for malignant neoplasm of breast (principal) ==

== ENCOUNTER → 2018-09-22 | Outpatient (REF) | payer OTHER ==
[~2018-09-22] MED LIST changes: -ASPI1TAB PO; +ASPI81TA26 PO
[2018-09-22 13:56] LABS: ALBUMIN 3.2 GM/DL (3.2-5.2); BILIRUBIN,TOTAL 0.2 MG/DL (0.2-1.0); CALCIUM LEVEL 8.3 MG/DL (8.5-10.1); CHOLESTEROL RISK RATIO 5.146 (<5); CREATININE FOR GFR 1.04 MG/DL (0.55-1.30); POTASSIUM SERUM 4.6 MEQ/L (3.5-5.1); THYROID STIMULATING HORMONE 2.42 uIU/ML (0.358-3.740)
== END ==
LOC: M LAB REF 12:45
PROVIDERS: ATTEND Family Medicine Addiction Medicine
DX: I10 Essential (primary) hypertension (principal)

== ENCOUNTER → 2020-06-30 | Outpatient (REF) | payer OTHER ==
[2020-06-30 11:55] LABS: BASO % 0.3 % (0.0-1.0); EOS # 0.2 10^3/uL (0.0-0.5); EOS % 2.5 % (0.0-3.0); HEMATOCRIT 34.7 % (36.0-47.0); HEMOGLOBIN 10.2 g/dl (12.0-15.5); LYMPH # 1.6 10^3/uL (1.5-5.0); LYMPH % 21.8 % (24.0-44.0); MEAN CORPUSCULAR HEMOGLOBIN 21.1 pg (27.0-33.0); MEAN CORPUSCULAR HGB CONC 29.4 g/dl (32.0-36.5); MEAN CORPUSCULAR VOLUME 71.7 fl (80.0-96.0); MONO # 0.6 10^3/uL (0.0-0.8); MONO % 8.2 % (2.0-8.0); NEUTROPHILS % 66.8 % (36.0-66.0); PLATELET COUNT, AUTOMATED 378 10^3/uL (150-450); RED BLOOD COUNT 4.84 10^6/uL (4.00-5.40); WHITE BLOOD COUNT 7.5 10^3/uL (4.0-10.0)
[2020-06-30 12:21] LABS: ALBUMIN 3.4 GM/DL (3.2-5.2); ALT/SGPT 58 U/L (12-78); BILIRUBIN,TOTAL 0.2 MG/DL (0.2-1.0); BLOOD UREA NITROGEN 23 MG/DL (7-18); CALCIUM LEVEL 8.4 MG/DL (8.5-10.1); CARBON DIOXIDE LEVEL 28 MEQ/L (21-32); CHLORIDE LEVEL 105 MEQ/L (98-107); CHOLESTEROL LEVEL 274 MG/DL (<200); CHOLESTEROL RISK RATIO 6.682 (<5); CREATININE FOR GFR 1.01 MG/DL (0.55-1.30); GLOMERULAR FILTRATION RATE > 60.0 (>51); GLUCOSE, FASTING 93 MG/DL (70-100); HDL CHOLESTEROL 41 MG/DL (>40); LDL CHOLESTEROL 194 MG/DL (<100); NON-HDL-C 233 MG/DL; POTASSIUM SERUM 4.5 MEQ/L (3.5-5.1); SODIUM LEVEL 140 MEQ/L (136-145); TRIGLYCERIDES LEVEL 196 MG/DL (<150)
[2020-06-30 13:08] LABS: HEPATITIS C VIRUS ABY INDEX 0.2 INDEX (<0.8)
[2020-06-30 13:09] LABS: HIV 1&2 SCREEN CENTAUR NEGATIVE (NEGATIVE)
== END ==
LOC: M LAB REF 11:25
PROVIDERS: ATTEND Family Medicine Addiction Medicine
DX: I10 Essential (primary) hypertension (principal)

== ENCOUNTER → 2022-07-19 | Outpatient (REF) | payer OTHER ==
[2022-07-19 13:27] LABS: ALBUMIN 3.7 G/DL (3.2-5.2); BILIRUBIN,TOTAL 0.3 MG/DL (0.3-1.2); CALCIUM LEVEL 9.2 MG/DL (8.5-10.1); CHOLESTEROL RISK RATIO 6.59 (<5); CREATININE FOR GFR 1.18 MG/DL (0.55-1.30); HDL CHOLESTEROL 35.2 MG/DL (>40); LDL CHOLESTEROL 174.4 MG/DL (<100); NON-HDL-C 196.8 MG/DL; POTASSIUM SERUM 4.1 MMOL/L (3.5-5.1); THYROID STIMULATING HORMONE 1.603 uIU/ML (0.55-4.78); TOTAL PROTEIN 7.1 G/DL (5.7-8.2)
== END ==
LOC: M LAB REF 12:25
PROVIDERS: ATTEND Family Medicine Addiction Medicine
DX: E78.5 Hyperlipidemia, unspecified (principal)

== ENCOUNTER 2023-01-06 13:16 | Emergency (ER) | payer OTHER ==
[~2023-01-06] VITALS: Ht 154.9 cm; Wt 108.7 kg
[2023-01-06 14:39] VITALS: BP 132/69; TEMP 99.2; O2SAT 95
== END 2023-01-06 15:14 | disposition home or self-care (01) ==
LOC: M ED 13:16
DX: R19.7 Diarrhea, unspecified (principal)

== ENCOUNTER → 2023-08-12 | Outpatient (REF) | payer OTHER ==
[2023-08-12 12:45] LABS: ALBUMIN 3.4 G/DL (3.2-5.2); ALKALINE PHOSPHATASE 91 U/L (46-116); ALT/SGPT < 9 U/L (7.0-40); AST/SGOT 13 U/L (<34); BILIRUBIN,TOTAL 0.2 MG/DL (0.3-1.2); BLOOD UREA NITROGEN 28 MG/DL (9-23); CALCIUM LEVEL 9.4 MG/DL (8.5-10.1); CARBON DIOXIDE LEVEL 32 MMOL/L (20-31); CHLORIDE LEVEL 106 MMOL/L (98-107); CHOLESTEROL LEVEL 224 MG/DL (<200); CHOLESTEROL RISK RATIO 5.89 (<5); CREATININE FOR GFR 0.94 MG/DL (0.55-1.30); GLOMERULAR FILTRATION RATE > 60.0 (>51); GLUCOSE, FASTING 79 MG/DL (60-100); LDL CHOLESTEROL 128.6 MG/DL (<100); POTASSIUM SERUM 4.4 MMOL/L (3.5-5.1); SODIUM LEVEL 139 MMOL/L (136-145); TOTAL PROTEIN 6.7 G/DL (5.7-8.2); TRIGLYCERIDES LEVEL 287 MG/DL (<150)
[2023-08-12 12:49] LABS: THYROID STIMULATING HORMONE 1.988 uIU/ML (0.55-4.78)
== END ==
LOC: M LAB REF 11:47
PROVIDERS: ATTEND Family Medicine Addiction Medicine
DX: E78.5 Hyperlipidemia, unspecified (principal)

== ENCOUNTER → 2023-11-20 | Outpatient (CLI) | payer OTHER | LOC: M PLARAD 14:29 | PROVIDERS: ATTEND Family Medicine Addiction Medicine | DX: R41.3 Other amnesia (principal); I63.81 Other cerebral infarction due to occlusion or stenosis of small artery; I51.7 Cardiomegaly ==